=== PATIENT | female | born 1970 | race Caucasian/White ===

== ENCOUNTER → 2019-07-25 | Day surgery (SDC) | payer BC ==
[2019-07-22 16:56] LABS: BASOPHILS % 0.5 % (0.0-1.0); EOSINOPHILS # (AUTO) 0.2 (0.0-0.4); EOSINOPHILS % 2.7 % (0.0-6.0); HEMATOCRIT 40.1 % (34.2-44.1); HEMOGLOBIN 13.6 g/dL (12.0-16.0); LYMPHOCYTES # (AUTO) 3.1 (1.0-3.2); LYMPHOCYTES % 35.9 % (18.0-39.1); MEAN CORPUSCULAR HEMOGLOBIN 30.7 pg (28-32); MEAN CORPUSCULAR HGB CONC 33.9 g/dL (31-35); MEAN CORPUSCULAR VOLUME 90.5 fL (81-99); MONOCYTES # (AUTO) 0.6 (0.2-0.8); MONOCYTES % 6.4 % (4.4-11.3); NEUTROPHILS # (AUTO) 4.6 (2.1-6.9); NEUTROPHILS % 54.1 % (38.7-80.0); PLATELET COUNT 282 x10e3/uL (140-360); RED BLOOD COUNT 4.43 x10e6/uL (3.6-5.1); RED CELL DISTRIBUTION WIDTH 12.8 % (11.7-14.4)
[2019-07-22 17:13] LABS: ALANINE AMINOTRANSFERASE 21 IU/L (0-55); ALKALINE PHOSPHATASE 112 IU/L (40-150); ANION GAP 12.6 mmol/L (8-16); BLOOD UREA NITROGEN 18 mg/dL (7-26); BUN/CREATININE RATIO 21 (6-25); CALCIUM 9.6 mg/dL (8.4-10.2); CARBON DIOXIDE 28 mmol/L (22-29); CHLORIDE 102 mmol/L (98-107); CREATININE, SERUM 0.87 mg/dL (0.57-1.11); EST GLOMERULAR FILTRATION RATE > 60 ML/MIN (60-); GLUCOSE 130 mg/dL (74-118); POTASSIUM 3.6 mmol/L (3.5-5.1); SODIUM 139 mmol/L (136-145)
[2019-07-22 17:43] LABS: ERYTHROCYTE SEDIMENTATION RATE 31 mm/hr (0-20)
[~2019-07-25] MED LIST: ADDERALL 10 MG10 MG PO; BENZONATATE100 MG PO; CYMBALTA30 MG PO; EPHEDRINE SULFATE INJ 50 MG/10 ML SYR ONE; FENTANYL CITRATE/PF 100MCG/2 ML INJ ONE; HYOSCYAMINE 0.125 MG TAB ONE; LOSARTAN POTASS25 MG PO; METFORMIN HCL500 MG PO; METOPROLOL SUCC25 MG PO; MIDAZOLAM HCL 2 MG/2 ML VIAL ONE; PHENYLEPHRINE HCL 1% 10 MG/ML VIAL ONE; PROPOFOL IV EMULSION 10 MG/ML 50 ML VIAL ONE
[2019-07-25 10:15] VITALS: BP 112/78
[2019-07-25 14:46] LABS: C DIFFICILE TOXIN A&B AMP PROB NEGATIVE (NEGATIVE); WBC,FECAL (FECAL LACTOFERRIN) NEGATIVE (NEGATIVE)
--- NOTE | 2019-07-25 16:45 | Operative Report ---
DATE OF PROCEDURE: 07/25/2019 SURGEON: Luis Mi MD PROCEDURE: Colonoscopy with polypectomy and biopsies. INDICATIONS FOR COLONOSCOPY: Colorectal cancer screening, intermittent diarrhea. MEDICATIONS: The patient was done under MAC, please see anesthesiologist's note. PROCEDURE IN DETAIL: With the patient in left lateral decubitus position, a flexible fiberoptic Olympus colonoscope was inserted into the rectum with ease and advanced all the way to the cecum. Mucosa overlying the cecum appeared to be within normal limits. The ileocecal valve was intubated and the scope was advanced into the terminal ileum. Biopsies were obtained. The scope was then withdrawn back into the colon. It was then withdrawn slowly and mucosa overlying the ascending, transverse, descending, and sigmoid revealed some patchy areas of erythema and random biopsies were obtained. One polyp was hot biopsied from the sigmoid colon. The mucosa overlying the distal rectum was friable with some superficial ulcerations and biopsies were obtained. Approximately 6 mm polyp from the distal rectum was removed per snare electrocautery. The scope was retroflexed into the distal rectum and small internal hemorrhoids were noted, none of which was actively bleeding. The scope was then straightened out, it was subsequently withdrawn after securing an adequate stool specimen that was sent for the appropriate stool studies. The patient tolerated procedure well. IMPRESSION: 1. Mild patchy colitis, random biopsies obtained. 2. Sigmoid colon polyp, hot biopsied. 3. Rectal polyp, snared. 4. Proctitis, distal rectum, biopsied. 5. Internal hemorrhoids, none actively bleeding. PLAN: Follow up histology. Initiate VSL#3 one p.o. q.i.d. and Flagyl 500 mg one p.o. t.i.d. x14 days. The patient might benefit from a followup colonoscopy in 3 to 5 years. Luis Mi MD [facility] [place]/[facility] /[id number] cc: Aaron Rosas MD
== END | disposition home or self-care (01) ==
LOC: OR 06:59
PROVIDERS: ATTEND Internal Medicine Gastroenterology
DX: K52.9 Noninfective gastroenteritis and colitis, unspecified (principal); K63.5 Polyp of colon; K62.1 Rectal polyp; K59.00 Constipation, unspecified; K62.89 Other specified diseases of anus and rectum; K21.9 Gastro-esophageal reflux disease without esophagitis; K64.8 Other hemorrhoids; E11.9 Type 2 diabetes mellitus without complications; I10 Essential (primary) hypertension; F41.9 Anxiety disorder, unspecified; Z01.810 Encounter for preprocedural cardiovascular examination; Z01.812 Encounter for preprocedural laboratory examination; Z79.84 Long term (current) use of oral hypoglycemic drugs
CPT/HCPCS: 36415 ×2; 45380; 45384; 45385; 80053; 82948; 83630; 83993; 85025; 85651; 87045; 87177; 87328; 87493; 93005; J2250; J2370; J2704; J3010; 45378

== ENCOUNTER 2019-11-09 17:32 | Emergency (ER) | payer BC ==
[~2019-11-09] VITALS: Ht 170.2 cm; Wt 90.7 kg
[~2019-11-09 17:32] MED LIST changes: -EPHEDRINE SULFATE INJ 50 MG/10 ML SYR ONE; -FENTANYL CITRATE/PF 100MCG/2 ML INJ ONE; -HYOSCYAMINE 0.125 MG TAB ONE; -MIDAZOLAM HCL 2 MG/2 ML VIAL ONE; -PHENYLEPHRINE HCL 1% 10 MG/ML VIAL ONE; -PROPOFOL IV EMULSION 10 MG/ML 50 ML VIAL ONE
[2019-11-09 17:45] VITALS: BP 160/86
== END 2019-11-09 17:54 | disposition home or self-care (01) ==
LOC: ER 17:32
DX: L20.9 Atopic dermatitis, unspecified (principal); L24.9 Irritant contact dermatitis, unspecified cause; L40.9 Psoriasis, unspecified; L50.1 Idiopathic urticaria
CPT/HCPCS: 99282